=== PATIENT | female | born 1975 | race African-American/Black ===

== ENCOUNTER 2017-07-29 15:32 | Emergency (ER) | payer BC ==
[2017-07-29 15:58] LABS: BILIRUBIN,URINE NEGATIVE (NEG); CLARITY,URINE CLEAR; COLOR,URINE YELLOW; GLUCOSE,URINE NEGATIVE (NEG); NITRITE,URINE NEGATIVE (NEG); PH,URINE 7.5; PROTEIN,URINE NEGATIVE (NEG-TRACE); UROBILINOGEN,URINE 0.2 mg/dL (0.2 mg/dL)
[2017-07-29 16:12] LABS: NEG OBC UR NEG; POS OBC UR POS; U PREG PATIENT NEGATIVE (NEG)
[2017-07-29 16:19] LABS: BACTERIA,URINE FEW /HPF (0-FEW); RBC,URINE 0 /HPF (0-2); SQUAMOUS EPITHELIAL CELL,UR FEW /LPF; WBC,URINE 0 /HPF (0-4)
[2017-07-29 16:30] LABS: ADD MAN DIFF? NO
[2017-07-29 16:40] LABS: BASO # 0.1 x10^3/uL (0.0-0.2); BASO % 1 % (0-3); EOS # 0.3 x10^3/uL (0.0-0.7); EOS % 6 % (0-3); HEMATOCRIT 33.5 % (36.0-47.0); HEMOGLOBIN 11.6 g/dL (12.0-15.5); LYMPH # 2.3 x10^3/uL (1.0-4.8); LYMPH % 47 % (24-48); MEAN CORPUSCULAR HEMOGLOBIN 33 pg (25-35); MEAN CORPUSCULAR HGB CONC 35 g/dL (31-37); MEAN CORPUSCULAR VOLUME 95 fL (79-100); MONO # 0.3 x10^3/uL (0.0-1.1); MONO % 6 % (0-9); NEUT # 1.9 x10^3uL (1.8-7.7); NEUT % 40 % (31-73); PLATELET COUNT 308 x10^3/uL (140-400); RED BLOOD COUNT 3.52 x10^6/uL (3.50-5.40); RED CELL DISTRIBUTION WIDTH 13.4 % (11.5-14.5); WHITE BLOOD COUNT 4.9 x10^3/uL (4.0-11.0)
[2017-07-29] MEDS: ONDANSETRON PF 4 MG/2 ML VIAL. IV (16:45)
[2017-07-29 17:11] LABS: ANION GAP 10 (6-14); BLOOD UREA NITROGEN 15 mg/dL (7-20); CALCIUM 9.3 mg/dL (8.5-10.1); CARBON DIOXIDE 25 mmol/L (21-32); CHLORIDE 106 mmol/L (98-107); GFR 73.6; GLUCOSE 87 mg/dL (70-99); POTASSIUM 3.8 mmol/L (3.5-5.1); SODIUM 141 mmol/L (136-145)
[2017-07-29] MEDS: IV NORMAL SALINE 1000ML BAG 1,000 ML IV (17:19)
[2017-07-29 17:46] LABS: INFLUENZA A PATIENT NEGATIVE (NEGATIVE); INFLUENZA B PATIENT NEGATIVE (NEGATIVE); OBC FLU VALID
== END 2017-07-29 19:50 | disposition home or self-care (01) ==
LOC: ER 15:32
DX: R42 Dizziness and giddiness (principal); R09.81 Nasal congestion; J34.89 Other specified disorders of nose and nasal sinuses; R50.9 Fever, unspecified; R51 Headache; M54.2 Cervicalgia; M54.6 Pain in thoracic spine; I10 Essential (primary) hypertension; Z88.1 Allergy status to other antibiotic agents
CPT/HCPCS: 36415; 80048; 81001; 81025; 85025; 87086; 87804; 87804-59; 93005; 96360; 99285-25; J7030

== ENCOUNTER → 2018-06-27 | Outpatient (CLI) | payer BC ==
[2017-07-29 17:14] VITALS: BP 127/73
[~2018-06-27] MED LIST: CYCL10TA2 PO; IOHEXOL 240 MG/ML 50ML VIAL. PO ONE; IOHEXOL 300 MG/ML 100ML VIAL. IV ONE
--- NOTE | 2018-06-27 11:35 | KCIC ---
CT of the abdomen and pelvis with contrast 06/27/2018 INDICATION: Right lower quadrant pain. Evaluate for hernia. COMPARISON STUDY: None. TECHNIQUE: Multidetector CT imaging of the abdomen and pelvis was performed following the administration of IV and oral contrast. Lung bases demonstrate no acute abnormality. Liver is normal in size. The liver is mildly diffusely low in attenuation most likely reflecting hepatic steatosis. There is a somewhat ill-defined 7 mm hypodense nodule in the posterior right liver, too small to adequately characterize. The appearance is nonspecific but statistically this most likely represents a small hemangioma or cyst. There is no evidence of bowel obstruction no acute inflammatory changes involving visualized bowel are identified. The appendix is unremarkable in appearance. No inguinal or ventral hernia is present. Bladder is grossly unremarkable. No acute osseous changes are identified. Levocurvature of the lumbar spine noted. IMPRESSION: 1. No acute intra-abdominal abnormality is identified. No ventricular angle hernia is seen. 2. Mildly low attenuation of the liver suggesting hepatic steatosis. CT DOSING PQRS STATEMENT: One or more of the following individualized dose reduction techniques were utilized for this examination: 1. Automated exposure control 2. Adjustment of the mA and/or kV according to patient size 3. Use of iterative reconstruction technique Electronically signed by: Markel Ba MD (06/27/2018 11:33 AM) [id number]
== END | disposition home or self-care (01) ==
LOC: KCIC CT 10:10
PROVIDERS: ATTEND Specialist
DX: K43.9 Ventral hernia without obstruction or gangrene (principal); K40.90 Unilateral inguinal hernia, without obstruction or gangrene, not specified as recurrent; I10 Essential (primary) hypertension
CPT/HCPCS: 74177; Q9966; Q9967